=== PATIENT | female | born 1980 | race African-American/Black ===

== ENCOUNTER 2016-10-14 20:41 | Emergency (ER) | payer OTHER ==
[~2016-10-14] VITALS: Ht 162.6 cm; Wt 120.1 kg
[~2016-10-14 20:41] MED LIST: AMOXICILLIN500 M1 PO; MOTRIN IB200 MG PO; MOTRIN600 MG PO; MOTRIN800 MG PO; NAPROSYN500 MG PO; NORCO 5/3251 TABLET PO; VALIUM5 MG PO; XANAX0.25 MG PO; ZOFRAN4 MG PO
[2016-10-14 22:54] LABS: HEMATOCRIT 37.4 % (36.0-46.0); MCH 26.9 PG (29.0-34.0); MCHC 33.4 G/DL (30.0-36.0); MCV 80.6 FL (83-99); MEAN PLAT.VOLUME 10.1 uM^3 (9.5-12.4); PLATELET COUNT 366 K/uL (156-360); RBC DIS.WIDTH-SD 40.3 % (39-53); RED BLOOD COUNT 4.64 M/uL (3.80-5.20); WHITE BLOOD COUNT 5.7 K/uL (4.1-10.2)
[2016-10-14 23:05] LABS: CHLORIDE 104 mEq/L (99-109); POTASSIUM 3.9 mEq/L (3.7-5.4); SODIUM 138 mEq/L (136-147)
[2016-10-14 23:07] LABS: GLUCOSE 103 mg/dL (70-99)
[2016-10-14 23:09] LABS: ANION GAP 10 MEQ/L (2-14)
[2016-10-14 23:11] LABS: GFR ESTIMATE (CALCULATED) > 59 mL/min/
[2016-10-14 23:12] LABS: UREA NITROGEN (BUN) 8 mg/dL (9-23)
[2016-10-14 23:18] LABS: ERTH.SED.RATE 47 MM/HR (0-20)
[2016-10-14 23:24] LABS: QUANTITATIVE HCG < 4.0 MIU/ML
[2016-10-15] MEDS ORDERED: NORCO 5/3251 TABLET PO (00:11)
[2016-10-15] MEDS ORDERED: SKELAXIN800 MG PO (00:11)
[2016-10-15 00:16] VITALS: BP 138/67
== END 2016-10-15 00:17 | disposition home or self-care (01) ==
LOC: EME 20:41
PROVIDERS: Physician Assistant
DX: M54.2 Cervicalgia (principal); R68.84 Jaw pain; M25.511 Pain in right shoulder; Z91.81 History of falling
CPT/HCPCS: 70487; 80048; 84702; 85027; 85651; 86140; 99281; 99285; J1100; J1885